=== PATIENT | male | born 1990 | race Hispanic/Latino ===

== ENCOUNTER 2025-01-26 15:56 | Emergency (ER) | payer OTHER ==
[2025-01-26] MEDS ORDERED: IOPAMIDOL 370 MG/ML 100 ML INFUS..BTL INJ ONE (16:49)
[2025-01-26] MEDS: KETOROLAC TROMETHAMINE 30 MG/ML VIAL IV STA (16:51)
[2025-01-26] MEDS: METOCLOPRAMIDE HCL 10 MG/2ML VIAL IV ONE (16:51)
[2025-01-26] MEDS: SODIUM CHLORIDE 0.9% 1000ML 1,000 ML IV ONE (16:51)
[2025-01-26 18:00] VITALS: PULSE 93; RESP 20; TEMP 98.6; O2SAT 100
== END 2025-01-26 18:48 | disposition home or self-care (01) ==
LOC: FSED 16:22
DX: R51.9 Headache, unspecified (principal); R20.2 Paresthesia of skin
CPT/HCPCS: 70496; 70498; 80053; 80076; 81003; 85025; 85379; 86308; 99283; J1885; J2765; J7030; Q9967

== ENCOUNTER 2025-03-09 09:48 | Observation (INO) | payer OTHER ==
[~2025-03-09] VITALS: Ht 170.2 cm; Wt 90.1 kg
[2025-03-09] MEDS: ONDANSETRON HCL INJ 2MG/ML 2ML 2 MG/ML VIAL IV STA (11:10)
[2025-03-09 13:19] VITALS: PULSE 73; RESP 20; TEMP 97.8
[2025-03-09] MEDS ORDERED: PROPOFOL IV EMULSION 10 MG/ML 20 ML VIAL ONE (14:24)
[2025-03-09] MEDS ORDERED: ROCURONIUM BROMIDE 1 ML IV ONE (14:25)
[2025-03-09] MEDS ORDERED: SUCCINYLCHOLINE CHLORIDE 20 MG/ML 10ML VIAL ONE (14:25)
[2025-03-09] MEDS ORDERED: LIDOCAINE HCL 2% LOCAL INJ 5 ML SDV VIAL INJ ONE (14:25)
[2025-03-09] MEDS ORDERED: METOCLOPRAMIDE HCL 10 MG/2ML VIAL ONE ×2 (14:27→15:35)
[2025-03-09] MEDS ORDERED: HYOSCYAMINE SULFATE 0.5 MG/ML INJ ONE (14:30)
[2025-03-09 14:38] VITALS: BP 111/86; PULSE 8; RESP 18; TEMP 97.8; O2SAT 100
[2025-03-09] MEDS ORDERED: FENTANYL CITRATE/PF 100MCG/2 ML INJ ONE (15:21)
[2025-03-09] MEDS ORDERED: ONDANSETRON HCL INJ 2MG/ML 2ML 2 MG/ML VIAL ONE (15:37)
[2025-03-09] MEDS ORDERED: DEXAMETHASONE SOD PHOS INJ 4 MG/ML SDV ONE (15:37)
[2025-03-09] MEDS ORDERED: NEOSTIGMINE 1 MG/ML 10ML VIAL ONE (15:41)
[2025-03-09] MEDS ORDERED: GLYCOPYRROLATE INJ 0.2 MG/ML VIAL ONE (15:41)
[2025-03-09 17:01] VITALS: BP 127/81; PULSE 78; RESP 19; TEMP 97.9; O2SAT 98
[2025-03-09 19:59] VITALS: BP 114/71; PULSE 75; RESP 18; TEMP 98.1; O2SAT 96
[2025-03-09 20:00] VITALS: BP 114/71; PULSE 75; RESP 18; TEMP 98.1; O2SAT 96
[2025-03-09] MEDS ORDERED: SEVOFLURANE INHAL SOLN 250 ML PEN BTL ONE (22:31)
[2025-03-09 23:17] VITALS: BP 114/68; PULSE 84; RESP 18; TEMP 98.8; O2SAT 97
[2025-03-10 03:25] VITALS: BP 119/65; PULSE 90; RESP 18; TEMP 98.2; O2SAT 98
[2025-03-10 08:00] VITALS: BP 119/65; PULSE 90; RESP 18; TEMP 98.2; O2SAT 98
[2025-03-10 08:27] VITALS: BP 114/73; PULSE 71; RESP 14; TEMP 97.9; O2SAT 99
[2025-03-10 11:28] VITALS: BP 114/66; PULSE 70; TEMP 98.1; O2SAT 98
== END 2025-03-10 12:05 | disposition home or self-care (01) ==
LOC: FSED 09:57 → ERHOLD 11:46 → MED/SURG 13:57
PROVIDERS: ADMIT Internal Medicine; ATTEND Internal Medicine
DX: T18.128A Food in esophagus causing other injury, initial encounter (principal); K20.0 Eosinophilic esophagitis; K22.2 Esophageal obstruction; K29.00 Acute gastritis without bleeding; B96.81 Helicobacter pylori [H. pylori] as the cause of diseases classified elsewhere; K29.50 Unspecified chronic gastritis without bleeding; K44.9 Diaphragmatic hernia without obstruction or gangrene
CPT/HCPCS: 43450; 45379; 71250; 80053; 85025; 88305; 99282; G0378; J0330; J1100; J1980; J2003; J2405; J2470; J2543; J2710; J2765